=== PATIENT | female | born 1965 | race Two or more races ===

== ENCOUNTER 2023-10-21 08:05 | Day surgery (SDC) | payer OTHER ==
[~2023-10-21 08:05] MED LIST: CARAFATE1 GM PO; LIPITOR20 MG PO; MIRALAX17 GM PO; NEXIUM 24HR20 M1 PO; PEPCID AC10 MG PO; SYNTHROID88 MCG PO
== END 2023-10-21 14:40 | disposition home or self-care (01) ==
LOC: CIR.AMB 08:05
PROVIDERS: ATTEND Colon & Rectal Surgery
DX: K62.4 Stenosis of anus and rectum (principal); Z88.6 Allergy status to analgesic agent; Z91.041 Radiographic dye allergy status; Z20.822 Contact with and (suspected) exposure to COVID-19

== ENCOUNTER 2025-08-21 17:27 | Emergency (ER) | payer OTHER ==
[~2025-08-21] VITALS: Ht 154.9 cm; Wt 50.8 kg
[2025-08-21] MEDS ORDERED: METRONIDAZOLE/SODIUM CHLORIDE 500 MG/100 ML PIGGYBACK IV ONE ×2 (18:15→18:46)
[2025-08-21] MEDS ORDERED: ACETAMINOPHEN 500 MG GEL..CAP PO ONE ×2 (18:15→18:45)
[2025-08-21] MEDS ORDERED: FAMOTIDINE/PF 20 MG/2 ML VIAL IV ONE (18:15)
[2025-08-21] MEDS ORDERED: 0.9 % SODIUM CHLORIDE 1,000 ML IV SCH (18:15)
[2025-08-21] MEDS ORDERED: CIPROFLOXACIN IN 5 % DEXTROSE 400 MG/200 ML PIGGYBAG IV ONE ×2 (18:15→18:46)
[2025-08-21] MEDS ORDERED: METOCLOPRAMIDE HCL 5 MG/ML VIAL IV ONE (18:15)
[2025-08-21] MEDS ORDERED: METOCLOPRAMIDE HCL 5 MG/ML VIAL ONE (18:45)
[2025-08-21 18:46] LABS: BASO % 0.5 % (0.1-1.2); EOS # 0.32 (0.04-0.54); EOS % 3.9 % (0.7-7.0); LYMPH # 1.90 (1.18-3.74); LYMPH % 23.0 % (19.3-53.1); MEAN PLATELET VOLUME 12.20 fl (9.4-12.4); MONO # 0.62 (0.24-0.82); MONO % 7.5 % (4.7-12.5); NEUT # 5.35 (1.56-6.13); NEUT % 64.9 % (34.0-71.1); RED CELL DISTRIBUTION WIDTH 12.7 % (11.6-14.4)
[2025-08-21] MEDS ORDERED: FAMOTIDINE/PF 20 MG/2 ML VIAL ONE (18:46)
[2025-08-21 18:54] LABS: ERYTHROCYTE SEDIMENTATION RATE 26 mm/hr (0-30)
[2025-08-21 19:21] LABS: INR < 0.93
[2025-08-21 19:26] LABS: ALT/SGPT 19.0 U/L (12-78); AST/SGOT 17.0 U/L (15-37); BILIRUBIN TOTAL 0.31 mg/dL (0.3-1.2); BUN CREA RATIO 16.0 (7.0-25.0); CREATININE SERUM 0.8 mg/dL (0.55-1.02); GFR 72.92; GLOBULINA 3.7 G/DL (2.4-3.5); GLUCOSE FASTING 107.0 mg/dL (65-100); OSMOLALITY SERUM 278.0 MOSM/KG (275-295)
[2025-08-21] MEDS ORDERED: DIATRIZOATE MEGLUMINE, SODIUM 30 ML BOTTLE ONE (19:53)
[2025-08-21] MEDS ORDERED: DIATRIZOATE MEGLUMINE, SODIUM 30 ML BOTTLE PO ONE (20:00)
[2025-08-21] MEDS ORDERED: METRONIDAZOLE500 MG PO (23:29)
[2025-08-21] MEDS ORDERED: PEPCID AC20 MG PO (23:29)
[2025-08-21] MEDS ORDERED: TYLENOL ARTHRI650 MG PO (23:29)
[2025-08-21] MEDS ORDERED: CIPRO500 MG PO (23:29)
== END 2025-08-22 02:10 | disposition home or self-care (01) ==
LOC: ER 17:28
PROVIDERS: Student in an Organized Health Care Education/Training Program
DX: K57.32 Diverticulitis of large intestine without perforation or abscess without bleeding (principal); K52.89 Other specified noninfective gastroenteritis and colitis; E03.9 Hypothyroidism, unspecified; Z88.8 Allergy status to other drugs, medicaments and biological substances; Z88.6 Allergy status to analgesic agent; Z91.013 Allergy to seafood